=== PATIENT | female | born 1990 | race Caucasian/White ===

== ENCOUNTER → 2017-08-18 16:49 | Outpatient (CLI) | payer MEDICAID, SELFPAY ==
[2017-08-23 15:44] LABS: HPV HC, High Risk Positive (Negative)
[2017-08-23 15:45] LABS: HPV Reflexed? YES, CHARGE PATIENT
== END ==
PROVIDERS: Visit Provider Obstetrics & Gynecology
DX: Z12.4 Encounter for screening for malignant neoplasm of cervix (principal); Z12.72 Encounter for screening for malignant neoplasm of vagina
CPT/HCPCS: 87624; 88175; G0145

== ENCOUNTER → 2017-09-12 14:45 | Outpatient (CLI) | payer MEDICAID, SELFPAY ==
--- NOTE | 2017-09-12 | IMM_PTH ---
PATIENT: ABRAHAM QIU LOC: [facility] U#:[id number] AGE/SX: 34/F ROOM: RE09/12/[address]: Dr. Sukhi Nolen MD : 1990 BED: DIS: SPEC #: [id number] RECD: 09/15/17 11:26 STATUS: МАРИНА KEZIA #: [id number] LUCY: 09/12/17 00:[address]: Sukhi Nolen DEPT: IMMUNOHISTOCHEMISTRY RECD BY: Jasmin Gonzalez Tissues: C - Uterine cervix, NOS Procedures: p16 (initial) KI-67 (add) PHYSICIAN & INSTITUTION [place] [id number] SPECIMEN INFORMATION: Tissue Source: C ? Cervical biopsy 10 o?clock Clinical Info: ASCUS, HPV positive Specimen Number: [id number] C CPT code: 76111, 54166 METHODOLOGY: Deparaffinized sections of prefer/formalin-fixed tissue or PAP/DQ stained slides are incubated with monoclonal/polyclonal antibodies/oligonucleotide probes. Localization is made via biotin free immunoperoxidase method. Appropriate controls are performed and reacted as expected. Results on target cell population are indicated in the following table: RESULTS: ANTIBODY / CLONE RESULT Block C P16 (E6H4) positive, focal and patchy Ki-67 (30-9) negative These tests were developed and their performance characteristics determined by [facility]. They may not have been cleared or approved by the [place]. Food and Drug Administration. The FDA has determined that such clearance or approval is not necessary. INTERPRETATION: C. Cervix at 10 o?clock, biopsy: Focal changes suspicious for HPV cytopathic effects. SJ:vianey 09/16/17
--- NOTE | 2017-09-12 | CER_PTH ---
PATIENT: ABRAHAM QIU LOC: [facility] U#:[id number] AGE/SX: 34/F ROOM: RE09/12/[address]: Dr. Sukhi Nolen MD : 1990 BED: DIS: SPEC #: [id number] RECD: 09/12/17 14:12 STATUS: МАРИНА KEZIA #: [id number] LUCY: 09/12/17 00:[address]: Sukhi Nolen DEPT: SURGICAL PATHOLOGY RECD BY: Jasmin Gonzalez Tissues: A - Uterine cervix, NOS B - Endocervical C - Uterine cervix, NOS Procedures: Surgery Specimen Level IV HEADER OPERATION: Colposcopy with biopsy PRE-OP DIAGNOSIS: ASCUS, HPV positive TISSUE SUBMITTED: A ? Cervical biopsy, B ? ECC, C ? Cervical biopsy 10 o?clock MICROSCOPIC DIAGNOSIS A. Cervix, biopsy: Fragment of endocervical mucosa with chronic inflammation. See comment. B. ECC: Scant fragments of benign ecto- and endocervical epithelium, blood and mucous, negative for dysplasia. C. Cervix, 10 o?clock, biopsy: Focal changes suspicious for HPV cytopathic effects. Chronic inflammation. SJ:rg 09/15/17 COMMENT A. Transitional zone mucosa is not seen. C. Immunohistochemistry ([id number]) for surrogate HPV marker (p16) supports the above diagnosis. MICROSCOPIC DESCRIPTION Slides are reviewed. GROSS DESCRIPTION A - Received in fixative is one container labeled with the patient's name and designated cervical biopsy. The specimen consists of one irregular fragment of light stuart soft tissue that measures 0.7 x 0.2 x 0.1 cm. The specimen is totally submitted in one cassette. B - Received in fixative is one container labeled with the patient's name and designated ECC. The specimen consists of minute fragments of stuart tissue measuring in aggregate 1 x 0.2 x <0.1 cm. The specimen is filtered and totally submitted in one cassette. C - Received in fixative is one container labeled with the patient's name and designated cervical biopsy 10 o'clock. The specimen consists of one irregular fragment of light stuart soft tissue that measures 0.6 x 0.5 x 0.1 cm. The specimen is totally submitted in one cassette. / AM:vianey 09/12/17 TC:5 CPT: 45599 x3
== END ==
PROVIDERS: Visit Provider Obstetrics & Gynecology
DX: R87.810 Cervical high risk human papillomavirus (HPV) DNA test positive (principal)
CPT/HCPCS: 88305; 88341; 88342

== ENCOUNTER → 2018-07-17 11:37 | Outpatient (CLI) | payer MEDICAID, SELFPAY ==
[2016-01-22 11:09] VITALS: BMI 31.6
[2018-07-21 08:56] LABS: HPV Reflexed? NOT INDICATED
== END ==
PROVIDERS: Visit Provider Obstetrics & Gynecology
DX: Z12.4 Encounter for screening for malignant neoplasm of cervix (principal)
CPT/HCPCS: 88175; G0145